=== PATIENT | female | born 1990 | race Hispanic/Latino ===

== ENCOUNTER 2017-10-19 15:44 | Outpatient (CLI) | payer BC ==
--- NOTE | 2017-10-20 16:10 | Ultrasound Report ---
BILATERAL DIGITAL DIAGNOSTIC MAMMOGRAM with CAD 10/20/17 and LEFT BREAST ULTRASOUND 10/19/17: CLINICAL: 27-year-old with a palpable left breast lump. COMPARISON:Right mammogram 05/23/13. No left comparison. FINDINGS: The breasts are heterogeneously dense, which may obscure small masses. A mass with a partially obscured, partially circumscribed and partially irregular margins in the outer left breast correlates with a palpable marker. It measures approximately 2.3 x 2.3 cm.No other mass and no architectural distortion or suspicious calcifications.However, there is suggestion of an abnormally enlarged left axillary lymph node which is partially included on the mammogram. The right breast is negative. Ultrasound of the left breast was performed in the area of the palpable lump and demonstrated a solid irregular hypoechoic shadowing mass at 3 o'clock 3 cm from the nipple. It measures approximately 2.0 x 1.0 x 2.0 cm and correlates with the mammographic mass. The left axilla was not scanned. IMPRESSION: A highly suspicious 2 cm left breast mass at 3 o'clock 3 cm from the nipple and a suspicious left axillary lymph node. BI-RADS CATEGORY: 5 - - Highly Suggestive of Malignancy RECOMMENDATION: Ultrasound guided needle biopsy of the left breast and ultrasound guided needle biopsy of a left axillary lymph node. The patient was informed by the technologist at the time of the exam of the recommendation for ultrasound guided needle biopsy of the left breast mass and ultrasound guided biopsy of a left axillary lymph node. ACR BI-RADS MAMMOGRAPHIC CODES: 0 = Needs additional imaging evaluation; 1 = Negative; 2 = Benign; 3 = Probably benign; 4 = Suspicious; 5 = Malignant; 6 = Known biopsy-proven malignancy COMMENT: 1. Dense breast tissue, i.e., adenosis, fibrocystic changes, etc., may obscure an underlying neoplasm. 2. Approximately 10% of cancers are not detected with mammography. 3. A negative mammography report should not delay biopsy if a clinically suspicious mass is present. COMMENT: Patient follow-up letters are generated by our [employer] application.
== END 2017-10-19 15:45 | disposition home or self-care (01) ==
LOC: US 15:44
PROVIDERS: ATTEND Obstetrics & Gynecology Gynecology
DX: N63.20 Unspecified lump in the left breast, unspecified quadrant (principal)

== ENCOUNTER 2017-10-20 15:12 | Outpatient (CLI) | payer BC ==
--- NOTE | 2017-10-20 16:09 | Mammography Report ---
BILATERAL DIGITAL DIAGNOSTIC MAMMOGRAM with CAD 10/20/17 and LEFT BREAST ULTRASOUND 10/19/17: CLINICAL: 27-year-old with a palpable left breast lump. COMPARISON:Right mammogram 05/23/13. No left comparison. FINDINGS: The breasts are heterogeneously dense, which may obscure small masses. A mass with a partially obscured, partially circumscribed and partially irregular margins in the outer left breast correlates with a palpable marker. It measures approximately 2.3 x 2.3 cm.No other mass and no architectural distortion or suspicious calcifications.However, there is suggestion of an abnormally enlarged left axillary lymph node which is partially included on the mammogram. The right breast is negative. Ultrasound of the left breast was performed in the area of the palpable lump and demonstrated a solid irregular hypoechoic shadowing mass at 3 o'clock 3 cm from the nipple. It measures approximately 2.0 x 1.0 x 2.0 cm and correlates with the mammographic mass. The left axilla was not scanned. IMPRESSION: A highly suspicious 2 cm left breast mass at 3 o'clock 3 cm from the nipple and a suspicious left axillary lymph node. BI-RADS CATEGORY: 5 - - Highly Suggestive of Malignancy RECOMMENDATION: Ultrasound guided needle biopsy of the left breast and ultrasound guided needle biopsy of a left axillary lymph node. The patient was informed by the technologist at the time of the exam of the recommendation for ultrasound guided needle biopsy of the left breast mass and ultrasound guided biopsy of a left axillary lymph node. ACR BI-RADS MAMMOGRAPHIC CODES: 0 = Needs additional imaging evaluation; 1 = Negative; 2 = Benign; 3 = Probably benign; 4 = Suspicious; 5 = Malignant; 6 = Known biopsy-proven malignancy COMMENT: 1. Dense breast tissue, i.e., adenosis, fibrocystic changes, etc., may obscure an underlying neoplasm. 2. Approximately 10% of cancers are not detected with mammography. 3. A negative mammography report should not delay biopsy if a clinically suspicious mass is present. COMMENT: Patient follow-up letters are generated by our [employer] application.
== END 2017-10-20 15:13 | disposition home or self-care (01) ==
LOC: MAMMO 15:12
PROVIDERS: ATTEND Obstetrics & Gynecology Gynecology
DX: N63.20 Unspecified lump in the left breast, unspecified quadrant (principal); N60.22 Fibroadenosis of left breast
CPT/HCPCS: 77066

== ENCOUNTER 2017-10-27 12:41 | Outpatient (CLI) | payer BC ==
--- NOTE | 2017-10-27 14:53 | Mammography Report ---
LEFT DIGITAL DIAGNOSTIC MAMMOGRAM: 10/27/17 12:41:00 CLINICAL: For clip placement immediately status post ultrasound guided needle biopsy of a mass at 3 o'clock and ultrasound guided needle biopsy of an axillary lymph node. COMPARISON:10/20/17 FINDINGS: A biopsy clip is now identified in the upper outer quadrant and correlates with the biopsied mass. IMPRESSION: Concordant clip placement status post ultrasound biopsy. BI-RADS CATEGORY: 5 - - Highly Suggestive of Malignancy Pathology pending.
--- NOTE | 2017-10-27 15:26 | Ultrasound Report ---
ULTRASOUND GUIDED NEEDLE CORE BIOPSY WITH CLIP PLACEMENT LEFT BREAST AND ULTRASOUND GUIDED NEEDLE CORE BIOPSY OF A LEFT AXILLARY LYMPH NODE : 10/27/17 CLINICAL: Left breast mass and suspicious left axillary lymph nodes. COMPARISON :10/20/17 FINDINGS: The procedure was explained to the patient and informed consent was obtained. Ultrasound demonstrated the previously described irregular mass at 3 o'clock and at least 2 suspicious left axillary lymph nodes. The breast was marked with a felt tip marker and a timeout was called. The skin was prepped with Betadine and anesthetized with 1% lidocaine. Ultrasound guided needle core biopsy was performed at 3 o'clock through a small dermatotomy using ultrasound guidance, 2% lidocaine with epinephrine for deep anesthesia and a 14 gauge Achieve biopsy device. Real-time imaging demonstrated satisfactory sampling. Three cores were obtained and placed in formalin. A localizer clip was deployed within the mass. The skin in the axilla was prepped with Betadine and anesthetized with 1% lidocaine. Ultrasound guided needle core biopsy of a lymph node with suspicious cortical thickening was performed through a small dermatotomy using 2% lidocaine with epinephrine for deep anesthesia and an 18-gauge Achieve biopsy device. Two samples were obtained and placed in formalin. A localizer clip was deployed within the lymph node. Hemostasis was obtained at both sites with minimal pressure and sterile dressings were applied. The patient tolerated the procedure well and there were no apparent complications. A two-view mammogram demonstrated concordant clip placement at 3 o'clock. She left the department in good condition with instructions for wound care and followup. IMPRESSION: Uncomplicated ultrasound-guided needle core biopsy of a left breast mass and uncomplicated needle core biopsy of a left axillary lymph node.
== END 2017-10-27 12:42 | disposition home or self-care (01) ==
LOC: SPVWC 12:41
PROVIDERS: ATTEND Obstetrics & Gynecology Gynecology
DX: C50.412 Malignant neoplasm of upper-outer quadrant of left female breast (principal); C77.3 Secondary and unspecified malignant neoplasm of axilla and upper limb lymph nodes
CPT/HCPCS: 38505; 76942; 88305; 88341; 88342; 88361

== ENCOUNTER 2017-11-09 08:08 | Outpatient (CLI) | payer BC ==
--- NOTE | 2017-11-09 13:49 | Magnetic Resonance Report ---
BILATERAL BREAST MRI WITHOUT AND WITH CONTRAST: 11/09/17 08:08:00 CLINICAL: Newly diagnosed left breast cancer. Status post left ultrasound-guided needle core biopsy 10/27/17 with pathologic diagnosis of invasive carcinoma NOS, Cydney grade III. Ultrasound guided needle biopsy of a left axillary lymph node on the same day revealed metastatic carcinoma. COMPARISON:10/20/17 mammogram. TECHNIQUE: Axial 1.0-mm T1 without, axial high resolution 2.0-mm T2 and axial 1.0-mm dynamic Vibrant high-resolution postcontrast T1 fat saturation sequences on a 1.5 Nancy magnet. The examination was performed with an 8 channel dedicated [place] breast coil. Post processing with CAD and subtraction was performed on an [employer] workstation. 18.0 cc of Multihance was injected without incident for the contrast portion of the exam. Consent was obtained prior to the administration of the contrast. FINDINGS: Right: Mild background parenchymal enhancement. No mass or suspicious enhancement. No suspicious right axillary or right internal mammary lymph nodes. Left: Mild background parenchymal enhancement. The known cancer is an irregular enhancing mass at 3:30 o'clock approximately 9 cm from the nipple and 8.2 cm from the chest wall measuring 3.1 x 1.4 x 1.7 cm. It demonstrates heterogeneous enhancement with mixed kinetics, 207% peak enhancement, 64% type I persistent, 29% type II plateau and 7% type III washout waveforms. Multiple additional highly suspicious masses posterior and medial to the known cancer. There at least seven subcentimeter masses which form a line extending from the known cancer to the pectoralis major muscle. At least 2 masses are identified within the left pectoralis major muscle. However, no chest wall invasion. The extent of the known cancer and the additional highly suspicious lesions measures approximately 10 cm in the AP dimension. Several left axillary lymph nodes have abnormal morphology with minimal central fat. The largest is a level II lymph node measuring 3.2 x 2.4 cm. Several matted lymph nodes in the left axilla together measure 4.6 x 1.4 cm. No suspicious left internal mammary lymph nodes. IMPRESSION: 1. Multicentric left breast cancer with a dominant 3.1 cm mass and seven or more additional highly suspicious masses of the left breast. 2. Left pectoralis major muscle involvement but no chest wall invasion. 3. Left axillary hever metastasis with multiple abnormal lymph nodes. 4. Negative right breast. LEFT BI-RADS 6 -- Known Cancer RIGHT BI-RADS 1 -- Negative
== END 2017-11-09 08:09 | disposition home or self-care (01) ==
LOC: SPVIMAG 08:08
PROVIDERS: ATTEND Surgery
DX: C50.912 Malignant neoplasm of unspecified site of left female breast (principal); Z87.891 Personal history of nicotine dependence; Z88.6 Allergy status to analgesic agent
CPT/HCPCS: A9577; C8908; 77059

== ENCOUNTER 2017-11-13 08:32 | Day surgery (SDC) | payer BC ==
[2017-11-13] MEDS ORDERED: NACL BACTERIOSTATIC INFILTRATI ONE (09:08)
[2017-11-13] MEDS ORDERED: ANCEF/STERILE WATER 2 GM/20 ML 2 GM/20 ML SYRINGE IV SCH (09:20)
[2017-11-13] MEDS ORDERED: VERSED IV NR (10:00)
[2017-11-13] MEDS ORDERED: ceFAZolin 2 GM in NACL 0.9% 100 ML IV SCH (10:00)
[2017-11-13] MEDS ORDERED: LACTATED RINGERS 1,000 ML IV SCH (10:00)
[2017-11-13] MEDS ORDERED: MARCAINE 0.25% INFILTRATI ONE ×3 (10:27→11:27)
[2017-11-13] MEDS ORDERED: XYLOCAINE 1% 20 mL ONE (10:27)
[2017-11-13] MEDS ORDERED: NACL 0.9% 100 ML ONE (10:28)
[2017-11-13] MEDS ORDERED: HEPARIN 10,000 UNITS/10 ML ONE (10:28)
[2017-11-13] MEDS ORDERED: XYLOCAINE MPF 2% ONE (10:30)
[2017-11-13] MEDS ORDERED: DIPRIVAN 10 MG/ML IV ONE (10:30)
[2017-11-13] MEDS ORDERED: ZOFRAN ONE (10:31)
[2017-11-13] MEDS ORDERED: DILAUDID ONE (10:31)
[2017-11-13] MEDS ORDERED: DECADRON ONE (10:31)
[2017-11-13] MEDS ORDERED: ZOFRAN IV PRN (11:09)
[2017-11-13] MEDS ORDERED: DEMEROL IV PRN (11:09)
[2017-11-13] MEDS ORDERED: DILAUDID IV PRN (11:09)
--- NOTE | 2017-11-13 11:09 | Anesthesia Consultation ---
Anesthesia Consult and Med Hx Date of service: 11/13/17 - Airway Anesthetic Teeth Evaluation: Good ROM Head & Neck: Adequate Mental/Hyoid Distance: Adequate Mallampati Class: Class I Intubation Access Assessment: Good - Pulmonary Exam CTA: Yes - Cardiac Exam Cardiac Exam: RRR - Pre-Operative Health Status ASA Pre-Surgery Classification: ASA2 Proposed Anesthetic Plan: General - Pulmonary Hx Smoking: Yes (1PPD FOR 8 YEARS) - Central Nervous System Hx Psychiatric Problems: Yes - Other Systems Hx Alcohol Use: Yes (OCCAS) Hx Cancer: Yes
--- NOTE | 2017-11-13 11:09 | Anesthesia Day of Surgery ---
Anesthesia Day of Surgery - Day of Surgery Patient Examined: Yes Patient H&P Reviewed: Yes Patient is NPO: Yes
[2017-11-13] MEDS ORDERED: NACL 0.9% IR ONE (11:21)
[2017-11-13] MEDS ORDERED: HEPARIN 10,000 UNITS/10 ML IV ONE (11:21)
[2017-11-13] MEDS ORDERED: NACL 0.9% IV ONE (11:24)
[2017-11-13] MEDS ORDERED: XYLOCAINE 1% 20 mL INFILTRATI ONE (11:26)
--- NOTE | 2017-11-13 12:12 | Short Stay Summary ---
Short Stay Documentation Date of service: 11/13/17 - History Principal diagnosis: left breast cancer H&P: obtained from office - Allergies and Medications Current Medications: Allergies codeine Adverse Reaction (Verified 11/06/17 12:03) Nausea Home Medications Medication Instructions Recorded Confirmed Last Taken Type clonazePAM [KlonoPIN] 0.5 mg PO QHS 11/06/17 11/13/17 11/10/17 History Active Medications Hydromorphone HCl (Dilaudid) 0.5 mg IV Q10MIN PRN PRN Reason: Pain , Severe (7-10) Cefazolin Sodium (Ancef/Sterile Water 2 Gm/20 Ml) 2 gm in 20 mls @ 15 mls/hr IV PREOP JASBIR Stop: 11/13/17 23:59 Lactated Ringer's (Lactated Ringers) 1,000 mls @ 100 mls/hr IV DIRECT JASBIR Last Admin: 11/13/17 09:45 Dose: 100 mls/hr Meperidine HCl (Demerol) 25 mg IV ONCE PRN PRN Reason: Shivering Midazolam HCl (Versed) 2 mg IV PREOP NR Stop: 11/13/17 23:59 Last Admin: 11/13/17 09:45 Dose: 2 mg Ondansetron HCl (Zofran) 4 mg IV ONCE PRN PRN Reason: Nausea And Vomiting - Brief post op/procedure progress note Date of procedure: 11/13/17 Pre-op diagnosis: left breast cancer Post-op diagnosis: same Procedure: right internal jugular port a cath placement using ultrasound guidance, with fluoroscopy Anesthesia: GETA, local Findings: good placement of port and no PTX on post op CXR Surgeon: LAKHWINDER SRIVASTAVA Estimated blood loss: minimal Pathology: none Condition: stable - Hospital course Hospital course: Patient was observed in the PACU and discharged to home when criteria was met. - Disposition Condition at discharge: Good Disposition: DC-01 TO HOME OR SELFCARE Short Stay Discharge Plan Activity: no restrictions Diet: regular Wound: open to air (May shower tomorrow, pat incisions dry. Do not scrub the incisions. Do not submerge incisions in water.) Additional Instructions: Call surgeon's office if you have fevers greater than 100.4, redness or draining around the incision. Some bruising will be normal. May use ice on the incisions to help with bruising and soreness. Follow-up with Dr. Srivastava in 2 weeks if you do not have a appointment scheduled with Dr. Park in the next 2 weeks. Follow up with: VERA SUERO MD [Primary Care Provider] - 7 Days MARGOTH PARK MD [Staff Physician] - 7 Days Forms: Outpatient Surgery DC Inst. Prescriptions: Ibuprofen 800 mg PO Q8H PRN #20 tablet PRN Reason: Pain, Moderate (4-6)
--- NOTE | 2017-11-13 12:40 | Fluoroscopy Report ---
Single view chest: History: Breast cancer. Findings: Normal cardiomediastinal silhouette. Trachea is midline. Tip of right [id number] in lower superior vena cava. No consolidation pneumothorax or pleural effusion. Impression: Tip of right [id number] in lower superior vena cava. A
[2017-11-13 12:46] VITALS: BP 136/82
[2017-11-13] MEDS ORDERED: TYLENOL PO SCH (12:54)
--- NOTE | 2017-11-18 11:03 | Operative Report ---
Operative Report Operative Report: Date of procedure: 11/13/17 Pre-op diagnosis: left breast cancer Post-op diagnosis: same Procedure: right internal jugular port a cath placement using ultrasound guidance, with fluoroscopy Anesthesia: BJA, local Findings: good placement of port and no PTX on post op CXR Surgeon: LAKHWINDER SRIVASTAVA Estimated blood loss: minimal Pathology: none Condition: stable HPI and indication: 27 yo F with newly diagnosed left breast cancer, who is a candidate for chemotherapy. The patient was referred to the office for evaluation for port placement. After all risks, benefits, and alternatives to surgery were discussed and questions answered, consent was obtained. Procedure in detail: The patient was identified in the preoperative area, taken back to operating room, placed on operating table in supine position. After anesthesia was induced both arms were tucked and upper chest and neck were prepped and draped in usual sterile fashion. A timeout was performed. The was placed in Trendelenburg position. Local anesthetic was infiltrated into the skin at the intended puncture site. The right subclavian vein was visualized on ultrasound, however was difficult to access due to the large clavicle, and therefore this approach was aborted. The right internal jugular vein was identified on ultrasound and was accessed on the first stick. There was return of dark red, nonpulsatile blood. The wire was threaded under fluoroscopy without resistance and positioning confirmed. The needle was then removed. Using a 15 blade, an incision was made in the right upper chest and dissection carried down through the skin and subcutaneous tissue using Bovie electrocautery. Hemostasis was achieved along the way. A pocket for the port was then created bluntly and with electrocautery. The catheter was flushed and tunneled from the pocket to the wire. A breakaway catheter/dilator sheath then inserted over the wire under fluoroscopy, and the wire and dilator removed. The catheter was then inserted through the breakaway catheter which was then removed. The catheter sat flush under the skin. Using continuous fluoroscopy, the catheter was pulled back until the tip was visualized in the right atrium. The catheter was then cut to size and the port attached in the usual fashion. The port was then sutured into place to the pre-pectoral fascia using 2-0 Vicryl interrupted sutures. The wound was irrigated and hemostasis ensured. The port was flushed with heparinized saline and there was return of blood and it flushed easily. The port was then instilled with 3000 units of heparin. The deep dermal layer was then closed with interrupted 3-0 Vicryl stitches. The skin incisions were closed with 4-0 Monocryl subcuticular stitches and skin glue. Intraoperative chest x-ray did show good positioning of the port, without evidence of pneumothorax At the end of the case, all sponge, instrument, sharp counts were correct 2. The patient was awoken from anesthesia and taken to PACU in stable condition
== END 2017-11-13 13:30 | disposition home or self-care (01) ==
LOC: OR 08:32
PROVIDERS: ATTEND Surgery
DX: C50.412 Malignant neoplasm of upper-outer quadrant of left female breast (principal); C77.3 Secondary and unspecified malignant neoplasm of axilla and upper limb lymph nodes; F41.9 Anxiety disorder, unspecified; F17.210 Nicotine dependence, cigarettes, uncomplicated; Z88.5 Allergy status to narcotic agent; Z98.890 Other specified postprocedural states
CPT/HCPCS: 36561; 77001; 81025; C1788; J0690; J1100; J1170; J1644; J2250; J2405; J2704; J7120

== ENCOUNTER 2018-04-28 09:41 | Observation (INO) | payer BC ==
[2018-04-26 09:45] LABS: Basophils % (Auto) 0.5 % (0.0-1.8); Eosinophils # (Auto) 0.2 K/mm3 (0.0-0.4); Eosinophils % (Auto) 3.2 % (0.0-4.3); Hematocrit 38.4 % (30.3-42.9); Hemoglobin 13.6 gm/dl (10.1-14.3); Lymphocytes # (Auto) 1.2 K/mm3 (1.2-5.4); Lymphocytes % (Auto) 22.8 % (13.4-35.0); Mean Corpuscular HGB Conc 35 % (30-34); Mean Corpuscular Volume 91 fl (79-97); Monocytes # (Auto) 0.6 K/mm3 (0.0-0.8); Monocytes % (Auto) 11.6 % (0.0-7.3); Platelet Count 261 K/mm3 (140-440); Red Blood Count 4.21 M/mm3 (3.65-5.03); Red Cell Distribution Width 13.9 % (13.2-15.2)
[2018-04-26 10:00] LABS: BUN/Creatinine Ratio 14; Blood Urea Nitrogen 13 mg/dL (7-17); Calcium 9.2 mg/dL (8.4-10.2); Hemolysis Index 24
--- NOTE | 2018-04-26 11:01 | Anesthesia Consultation ---
Anesthesia Consult and Med Hx Date of service: 04/26/18 - Airway ROM Head & Neck: Adequate Mental/Hyoid Distance: Adequate Mallampati Class: Class II Intubation Access Assessment: Probably Good - Pulmonary Exam CTA: Yes - Cardiac Exam Cardiac Exam: RRR - Pre-Operative Health Status ASA Pre-Surgery Classification: ASA2 Proposed Anesthetic Plan: General Nerve Block: bilateral PEC block - Pulmonary Hx Smoking: Yes (1PPD FOR 8 YEARS) - Central Nervous System Hx Psychiatric Problems: Yes - Other Systems Hx Alcohol Use: Yes (OCCAS) Hx Cancer: Yes
[~2018-04-28 09:41] MED LIST: LACTATED RINGERS 1,000 ML IV SCH; NEURONTIN PO NR; VERSED IV NR
[2018-04-28] MEDS ORDERED: NACL P/F VIAL (10 ML) 10 ML ONE ×2 (10:26→12:21)
[2018-04-28] MEDS ORDERED: ANCEF ONE (10:27)
[2018-04-28] MEDS ORDERED: METHYLENE BLUE ONE (10:27)
[2018-04-28] MEDS ORDERED: BACITRACIN ONE (10:27)
[2018-04-28] MEDS ORDERED: ANCEF/STERILE WATER 2 GM/20 ML IV NR (11:00)
[2018-04-28] MEDS ORDERED: SUBLIMAZE ONE (11:14)
[2018-04-28] MEDS ORDERED: DECADRON ONE ×2 (11:15→11:29)
[2018-04-28] MEDS ORDERED: XYLOCAINE MPF 2% ONE (11:29)
[2018-04-28] MEDS ORDERED: DILAUDID ONE (11:29)
[2018-04-28] MEDS ORDERED: DIPRIVAN 10 MG/ML IV ONE (11:29)
[2018-04-28] MEDS ORDERED: DEMEROL IV PRN (12:35)
[2018-04-28] MEDS ORDERED: DILAUDID IV PRN (12:35)
[2018-04-28] MEDS ORDERED: ZOFRAN IV PRN ×2 (12:35→16:15)
--- NOTE | 2018-04-28 12:35 | Anesthesia Day of Surgery ---
Anesthesia Day of Surgery - Day of Surgery Patient Examined: Yes Patient H&P Reviewed: Yes Patient is NPO: Yes
[2018-04-28] MEDS ORDERED: ANCEF IV ONE ×2 (13:19)
[2018-04-28] MEDS ORDERED: GENTAMICIN IV ONE ×2 (13:20)
[2018-04-28] MEDS ORDERED: NACL 0.9% IR ONE (13:21)
[2018-04-28] MEDS ORDERED: BACITRACIN IR ONE ×2 (13:21)
[2018-04-28] MEDS ORDERED: NACL P/F VIAL (10 ML) INFILTRATI ONE (13:22)
[2018-04-28] MEDS ORDERED: METHYLENE BLUE IRRIGATION ONE (13:23)
[2018-04-28] MEDS ORDERED: WATER FOR IRRIG STERILE IR ONE (13:26)
--- NOTE | 2018-04-28 14:52 | Mammography Report ---
SPECIMEN RADIOGRAPH LEFT BREAST: 04/28/18 09:41:00 CLINICAL: Left mastectomy specimen. Multicentric left breast cancer status post chemotherapy. FINDINGS: A biopsy clip corresponds to the site of the known cancer and is at the margin of the specimen. No distinct mass is identified. IMPRESSION: Left mastectomy with excision of the known cancer.
--- NOTE | 2018-04-28 16:02 | Short Stay Summary ---
Short Stay Documentation Date of service: 04/28/18 - History H&P: obtained from office - Allergies and Medications Current Medications: Allergies codeine Adverse Reaction (Verified 04/16/18 16:42) Nausea Home Medications Medication Instructions Recorded Confirmed Last Taken Type RX: clonazePAM [KlonoPIN] 0.5 mg PO QHS 11/06/17 04/16/18 11/10/17 History RX: Ibuprofen 800 mg PO Q8H PRN #20 tablet 11/13/17 04/16/18 Unknown Rx Active Medications Cefazolin Sodium (Ancef/Sterile Water 2 Gm/20 Ml) 2 gm IV PREOP NR Stop: 04/28/18 23:59 Celecoxib (Celebrex) 200 mg PO PREOP NR Stop: 04/28/18 20:00 Last Admin: 04/28/18 10:45 Dose: 200 mg Documented by: Gabapentin (Neurontin) 300 mg PO PREOP NR Stop: 04/28/18 20:00 Last Admin: 04/28/18 10:45 Dose: 300 mg Documented by: Hydromorphone HCl (Dilaudid) 0.5 mg IV Q10MIN PRN PRN Reason: Pain , Severe (7-10) Stop: 04/28/18 23:59 Lactated Ringer's (Lactated Ringers) 1,000 mls @ 100 mls/hr IV DIRECT JASBIR Last Admin: 04/28/18 10:41 Dose: 100 mls/hr Documented by: Meperidine HCl (Demerol) 25 mg IV ONCE PRN PRN Reason: Shivering Stop: 04/28/18 23:59 Midazolam HCl (Versed) 2 mg IV PREOP NR Stop: 04/28/18 23:59 Ondansetron HCl (Zofran) 4 mg IV ONCE PRN PRN Reason: Nausea And Vomiting - Brief post op/procedure progress note Date of procedure: 04/28/18 Pre-op diagnosis: Left breast cancer of lower outer quadrant Post-op diagnosis: same Procedure: Left mastectomy with SLNB with completion ALND Anesthesia: GETA Findings: Left mastectomy with clip present and 2/3 positive SLNS and proceeded with ALND Surgeon: MARGOTH JONES Estimated blood loss: 50-100ml Pathology: list (L MRM) Specimen disposition: to lab Condition: stable - Disposition Condition at discharge: Good Disposition: DC/TX-02 SHRT-TRM GEN HOSP IP Short Stay Discharge Plan Activity: other (no heavy lifting) Diet: regular Wound: other (keep incision clean and dry) Follow up with: VERA SUERO MD [Primary Care Provider] - 7 Days MARGOTH JONES MD [Staff Physician] - 7 Days
[2018-04-28] MEDS ORDERED: REGLAN PO PRN (16:15)
[2018-04-28] MEDS ORDERED: BENADRYL PO PRN (16:15)
[2018-04-28] MEDS ORDERED: TYLENOL PO PRN (16:15)
[2018-04-28] MEDS ORDERED: PERCOCET 5/325 PO PRN (16:15)
[2018-04-28] MEDS ORDERED: SODIUM CHLORIDE FLUSH SYRINGE 10 ML IV PRN (16:15)
--- NOTE | 2018-04-28 16:15 | Operative Report ---
Operative Report Operative Report: Date of Service: April 28, 2018 Preoperative diagnosis: Left breast cancer of the lower outer quadrant Postoperative diagnosis: Same Procedure: Left total mastectomy with sentinel lymph node biopsy followed by ALND Surgeon: Esther Park M.D. Anesthesia: Gen. Findings: Left breast clip present within left total mastectomy. 3 sentinel lymph nodes identified and two nodes positive for malignancy on frozen section of pathology and proceeded with left axillary lymph node dissection Complications: None Drains: per plastic surgery Estimated blood loss: Minimal Disposition: PACU in good condition Indications for operative procedure: This is a 28-year-old lady with stage II left breast cancer of the lower outer quadrant, [id number] ER/NM positive. She completed neoadjuvant of AC/T. Recommendations were to proceed with left mastectomy given multicentric left breast cancer. She wished to proceed with the above procedure as well as immediate tissue supply chain design manager placement. Procedure in detail: Anesthesia placed left pectoral muscle block prior to going to the operating room. The patient was taken to the operating room and was placed supine. Gen. anesthesia was administered. The left nipple was injected with radioisotope and 1 cc of methylene blue. Left chest and axilla was prepped and draped in the normal sterile operative fashion. Timeout was performed. Typical mastectomy incision marking was made. Attention was taken towards the right breast. A gamma probe was inserted into the axilla to identify the sentinel lymph node location with no uptake noted. A skin incision was made with a 10 blade knife and dissection taken down to the subcutaneous tissues. First began raising of the superior flap to the level of the clavicle superiorly and posteriorly to the pectoralis muscle. Followed by raising of the medial flap to the level of the sternum and posteriorly to the pectoralis muscle. Followed by raising of the lateral flap to the level of the latissimus dorsi muscle and taken down posteriorly. The gamma probe was inserted into the axilla, the axillary fascia was opened and 3 sentinel lymph nodes were identified with the gamma probe that were dissected free and sent to pathology, SLN was previous biopsied axillary lymph node with malginancy. All remaining counts were less than 10% of the highest SLN. Lymph nodes were sent to pathology with findings positive for malignancy noted on frozen section of 2 of 3 SLNS (blue dye was present). Then proceeded with raising of the inferior flap to the level of the inframammary fold taken posterior to the pectoralis muscle. The mastectomy/breast was removed from the pectoralis muscle without incident. The specimen was appropriately marked and sent to radiology with findings of breast clips present and sent to pathology. Attention was then taken towards the left axilla. First began opening of the axillary fascia further. The lattismus dorsi muscle was identified and followed superiorly. Then proceeded with identification of the axillary vein followed by identification of the thoracodorsal bundle and long thoracic nerve. Axillary lymph nodes were then removed from the above boundaries with the aid of the bovie cautery and sweeping-like motion and then sent to pathology. Axillary lymph nodes from level I and II were removed. Both nerves were identified and unharmed. Hemostasis was noted. The chest wall was irrigated and suctioned. Hemostasis was obtained and plastic surgery then proceeded with tissue supply chain design manager placement. She tolerated surgery very well.
--- NOTE | 2018-04-28 16:43 | Operative Report ---
Operative Report Operative Report: PREOPERATIVE DIAGNOSIS: LEFT Breast Cancer POSTOPERATIVE DIAGNOSIS: LEFT Breast Cancer PROCEDURE: 1. LEFT breast reconstruction using tissue neon molder in the pre pectoral position, CPT code 52562-14 2. LEFT breast reconstruction using biological mesh, FlexHD, CPT code 64425-91 3. Application of ARMIDA negative pressure wound vac device to bilateral breasts for postoperative wound healing, CPT code 99766 SURGEON: Rohan Rangel MD STEAMSHIP AGENT: none ANESTHESIA: General OPERATIVE INDICATIONS: This is a 28 year old female with a history of LEFT sided breast cancer, was referred to me byDr. PARK for breast reconstruction. The patient was planning on undergoing LEFTmastectomy and desired reconstruction. A discussion was held with the patient regarding the different surgical options including: immediate vs delayed reconstruction, autologous vs implant based reconstruction as well as the risks and benefits of all options. Plan was to move forward with neon molder reconstruction. OPERATIVE DETAILS: After informed consent was obtained, patient was brought to the operating room and placed on the operating room table. Preoperative antibiotics and general anesthesia were administered. The patient was prepped and draped in the usual sterile fashion and a timeout called to verify the correct patient and procedure. Dr. PARK began her portion of the operation which will be dictated separately. I entered the room and assessed the defect and began my reconstruction. I began by measuring the base width and then choosing the appropriate sized neon molder after examining the defect. I then created a composite implant using the tissue neon molder and biologic mesh with a wrap in order to cover the implant and provide a pocket while in the PRE-PECTORAL space. This was done on the back table. We used MENTOR ARTUORA EXPANDERS, Smooth HP 500cc and wrapped with FlexHD 16 x 20 cm mesh. [employer]I [employer] SERIAL NUMBER: [id number] FLEXHD SERIAL NUMBER: [id number] The neon molder was completely deflated and then inflated with methylene blue tinted saline to a volume of 200cc. The fully wrapped implant was soaked in betadine and triple antibiotic irrigation. I then placed the composite implant on the pectoralis muscle and situated it in the correct position and then anchored it using the suture tabs and spanning sutures. Everything was irrigated again and hemostasis achieved. A 19French and 15 Albanian round channel drain was placed for postop drainage. The skin was then closed with 3-0 monocryl deep dermals and then a 2-0 monocryl barbed suture in a subcuticular pattern. A ARMIDA negative pressure wound vac device was used for coverage of the incisions to prevent postoperative wound healing complications. The patient tolerated the procedure well and was moved to the PACU in stable condition. ESTIMATED BLOOD LOSS: less than 50ml COMPLICATIONS: none SPECIMENS: See Dr. Pakr dictation. TOTAL FILL VOLUME EXPANDERS: 200 cc. FINDINGS: left mastectomy defect
[2018-04-28] MEDS ORDERED: VERSED IV ONE (17:13)
--- NOTE | 2018-04-28 18:14 | Post Anesthesia Evaluation ---
- Post Anesthesia Evaluation Patient Participated: Yes Airway Patent: Yes Stable Respiratory Function: Yes Nausea/Vomiting: No Temp > 96.8F: Yes Pain Manageable: Yes Adequeate Hydration: Yes Anesthesia Complications: No
[2018-04-28] MEDS: MORPHINE IV PRN (20:10)
[2018-04-28] MEDS: LACTATED RINGERS 1,000 ML IV SCH (20:13)
[2018-04-28] MEDS: NORCO 5/325 PO PRN (21:40)
[2018-04-28] MEDS: COLACE PO SCH (21:41)
[2018-04-29] MEDS: MORPHINE IV PRN ×2 (00:20→03:55)
[2018-04-29] MEDS: LACTATED RINGERS 1,000 ML IV SCH (03:54)
--- NOTE | 2018-04-29 08:19 | Progress Note ---
Assessment and Plan This is a 28 year old lady POD# 1 L MRM. No acute events overnight. 1. Left chest with PICCO in place, MATILDE drains to bulb suction. 2. Pain in moderate control, will add toradol. 3. OOB to hallway. 4. MATILDE drain education. 5. D/C planning for today. Subjective Date of service: 04/29/18 Principal diagnosis: Left breast cancer Interval history: POD#1 Left MRM Objective - Constitutional Vitals: Vital Signs - 12hr 04/28/18 04/29/18 04/29/18 20:55 00:11 04:02 Temperature 97.8 F 97.4 F L 97.5 F L Pulse Rate 82 68 58 L Respiratory 18 20 20 Rate Blood Pressure 125/77 109/62 117/77 O2 Sat by Pulse 97 97 100 Oximetry General appearance: Present: no acute distress - EENT Eyes: PERRL, EOM intact ENT: hearing intact, clear oral mucosa, dentition normal Ears: bilateral: normal - Respiratory Respiratory effort: normal Respiratory: bilateral: CTA - Breasts Breasts: other (left chest PICCO in place; MATILDE drains to bulb suction; no hematoma) - Cardiovascular Rhythm: regular Extremities: no ischemia, pulses intact, pulses symmetrical, No edema, normal temperature, normal color, Full ROM - Gastrointestinal General gastrointestinal: Present: soft, non-tender, non-distended Rectal Exam: deferred - Genitourinary Female genitourinary: deferred - Integumentary Integumentary: clear, warm, dry - Musculoskeletal Musculoskeletal: strength equal bilaterally - Neurologic Neurologic: CNII-XII intact, moves all extremities, gait normal - Psychiatric Psychiatric: appropriate mood/affect, intact judgment & insight, memory intact, cooperative - Labs CBC & Chem 7: 04/26/18 09:25 04/26/18 09:25 Medications & Allergies - Medications Allergies/Adverse Reactions: Allergies codeine Adverse Reaction (Verified 04/16/18 16:42) Nausea Home Medications: Home Medications Medication Instructions Recorded Confirmed Last Taken Type clonazePAM [KlonoPIN] 0.5 mg PO QHS 11/06/17 04/16/18 11/10/17 History Ibuprofen 800 mg PO Q8H PRN #20 tablet 11/13/17 04/16/18 Unknown Rx HYDROcodone/APAP 5-325 [Homeland 1 each PO Q6HR PRN #30 tablet 04/29/18 Unknown Rx 5/325] Ketorolac [Toradol] 10 mg PO Q6H PRN #8 tablet 04/29/18 Unknown Rx Active Medications: Generic Name Dose Route Start Last Admin Trade Name Freq PRN Reason Stop Dose Admin Acetaminophen 650 mg 04/28/18 16:15 Tylenol PO Q6H PRN Pain MILD(1-3)/Fever >100.5/GREEN Acetaminophen/Hydrocodone Bitart 2 each 04/28/18 20:50 04/28/18 21:40 Homeland 5/325 PO 2 each Q6H PRN Administration Pain, Moderate (4-6) Clonazepam 0.5 mg 04/28/18 18:51 04/28/18 20:18 Klonopin PO 0.5 mg QHS PRN Administration Anxiety Diphenhydramine HCl 25 mg 04/28/18 16:15 Benadryl PO Q8H PRN Itching Docusate Sodium 100 mg 04/28/18 22:00 04/28/18 21:41 Colace PO 100 mg BID JASBIR Administration Lactated Ringer's 1,000 mls @ 100 mls/hr 04/28/18 06:00 04/28/18 10:41 Lactated Ringers IV 100 mls/hr DIRECT JASBIR Administration Lactated Ringer's 1,000 mls @ 125 mls/hr 04/28/18 17:00 04/29/18 03:54 Lactated Ringers IV 125 mls/hr DIRECT JASBIR Administration Metoclopramide HCl 10 mg 04/28/18 16:15 Reglan PO Q6H PRN Nausea And Vomiting Morphine Sulfate 2 mg 04/28/18 16:17 04/29/18 03:55 Morphine IV 2 mg Q4H PRN Administration Pain, Moderate (4-6) Ondansetron HCl 4 mg 04/28/18 12:35 Zofran IV ONCE PRN Nausea And Vomiting Ondansetron HCl 4 mg 04/28/18 16:15 Zofran IV Q8H PRN N/V unrelieved by Reglan Sodium Chloride 10 ml 04/28/18 16:15 Sodium Chloride Flush Syringe 10 Ml IV PRN PRN LINE FLUSH
[2018-04-29] MEDS: NORCO 5/325 PO PRN ×2 (08:20→13:38)
[2018-04-29] MEDS: COLACE PO SCH (08:21)
[2018-04-29 17:26] VITALS: BP 135/76
== END 2018-04-30 16:20 | disposition home or self-care (01) ==
LOC: OR 09:41 → OB 16:15
PROVIDERS: ADMIT Surgery; ATTEND Surgery
DX: C50.312 Malignant neoplasm of lower-inner quadrant of left female breast (principal); C50.512 Malignant neoplasm of lower-outer quadrant of left female breast; Z79.899 Other long term (current) drug therapy; Z80.3 Family history of malignant neoplasm of breast
CPT/HCPCS: 15777; 19303; 19357; 36415; 38525; 38792; 64450; 76098; 78800; 80048; 84703; 85025; 88307; 88331; 96374; 96375; 96376; A9541; C1789; G0378; J0690; J1100; J1170; J1580; J2250; J2270; J2704; J3010; J7120; Q4128; Q9968; 88309; 88333

== ENCOUNTER 2019-09-13 10:00 | Outpatient (CLI) | payer BC ==
--- NOTE | 2019-09-13 11:53 | Mammography Report ---
RIGHT DIGITAL DIAGNOSTIC MAMMOGRAM WITH CAD 09/13/2019 RIGHT COMPLETE BREAST ULTRASOUND INDICATION: Right breast lump, hx left breast cancer TECHNIQUE: Digital right mammographic imaging was performed. Complete ultrasound of all four (4) maximo drants was performed. This examination was interpreted with the benefit of Computer-Aided Detection ( CAD) analysis. COMPARISON: Prior mammogram, 12/07/2018 FINDINGS: Breast Density: The breasts are heterogeneously dense, which may obscure small masses. MAMMOGRAPHIC FINDINGS: There is no evidence of dominant mass, suspicious calcifications or architectu ral distortion in the right breast. It appears that the patient has had interval reduction mammoplast y of the right breast. There is no mammographic abnormality corresponding to the area of the palpable lump. ULTRASOUND FINDINGS: Complete sonographic evaluation of all 4 quadrants and retroareolar region was p erformed. Sonographic evaluation of the right breast shows postoperative changes consistent with hi story of interval right breast surgery. There is no suspicious finding. In the breast, at 9:30, 2 cm from the nipple, there is vague hypoechoic area that should represent postoperative change. Also in p alpable area at 7:30, 11 cm from the nipple, there is a small focal fluid collection measuring approx imately 4.5 x 3.6 x 1.3 cm consistent with small seroma. Additionally, there is a 10 mm cyst at 12:00 , 2 cm from the nipple. IMPRESSION: No evidence of malignancy. Palpable areas within the right breast appear to be postoperat janett in nature. Follow up recommendation: Routine yearly BI-RADS Category 2: Benign. A "normal" or negative report should not discourage follow up or biopsy of a clinically significant f inding. A written summary of these findings will be mailed to the patient. The patient will be entered into a mammography reporting system which will generate a reminder letter for the patient's next appointmen t at the appropriate interval. According to the [employer], yearly mammograms are recommended starting at age 40 and continuing as long as a woman is in good health. Breast MRI is recommended for women with an morales roximately 20-25% or greater lifetime risk of breast cancer, including women with a strong family his tory of breast or ovarian cancer and women who have been treated for Hodgkin's disease. Signer Name: Candy Willis MD Signed: 09/13/2019 11:48 AM Workstation Name: [email or web address]
== END 2019-09-13 10:01 | disposition home or self-care (01) ==
LOC: SPVWC 10:00
PROVIDERS: ATTEND Surgery
DX: R92.8 Other abnormal and inconclusive findings on diagnostic imaging of breast (principal)

== ENCOUNTER 2019-12-20 08:07 | Outpatient (CLI) | payer BC ==
--- NOTE | 2019-12-20 09:01 | Mammography Report ---
DIGITAL SCREENING MAMMOGRAM WITH CAD, 12/20/2019 INDICATION: Routine screening mammography. SCREENING MAMMOGRAM TECHNIQUE: Digital right 2D mammography was obtained in the craniocaudal and mediolateral oblique pr ojections. This examination was interpreted with the benefit of Computer-Aided Detection analysis. COMPARISON: 12/07/2018 FINDINGS: Breast Density: The breasts are heterogeneously dense, which may obscure small masses. There is no evidence of dominant mass, suspicious calcifications or architectural distortion in the r ight breast. Interval reduction changes are noted. IMPRESSION: No evidence of malignancy Follow up recommendation: Routine yearly BI-RADS Category 2: Benign. A "normal" or negative report should not discourage follow up or biopsy of a clinically significant f inding. A written summary of these findings will be mailed to the patient. The patient will be entered into a mammography reporting system which will generate a reminder letter for the patient's next appointmen t at the appropriate interval. The [employer] recommends yearly mammograms starting at age 40 and continuing as l rick as a woman is in good health. Breast MRI is recommended for women with an approximate 20-25% or greater lifetime risk of breast cancer, including women with a strong family history of breast or ova evert cancer or who have been treated for Hodgkin's disease. Signer Name: Johnny Langford MD Signed: 12/20/2019 8:56 AM Workstation Name: [id number]
== END 2019-12-20 08:08 | disposition home or self-care (01) ==
LOC: SPVWC 08:07
PROVIDERS: ATTEND Surgery
DX: C50.412 Malignant neoplasm of upper-outer quadrant of left female breast (principal)
CPT/HCPCS: 77067

== ENCOUNTER 2020-01-18 08:20 | Outpatient (CLI) | payer BC ==
--- NOTE | 2020-01-18 11:01 | Magnetic Resonance Report ---
Bilateral breast MR without and with contrast. History: History of left breast cancer, status post left breast mastectomy with implant reconstructio n, history of reduction surgery in the right breast. Screening breast MRI of the right breast. Comparison: 12/20/2019, 12/07/2018. Technique: Multiplanar multisequence MR images of the breast were obtained before and after the intra venous administration of intravenous contrast. Post processing analysis and review was performed on a separate computer workstation. Findings: The right breast demonstrates heterogenously dense breast composition. There is mild background paren chymal enhancement within the right breast. RIGHT BREAST: Postsurgical changes are noted following reported reduction surgery with mild distortio n in the right lower outer posterior breast. Within this region is vague low level enhancement with c entral fat component identified. This demonstrates enhancement kinetics which are typically associate d with benign etiologies and the appearance is most consistent with an area of fat necrosis/scarring. There is no discrete enhancing mass. LEFT BREAST: Patient is status post left breast mastectomy with implant reconstruction. The implant a ppears intact. There is skin thickening along the lateral aspect of the left breast which is typical of treatment related changes. No abnormal axillary or internal mammary lymph nodes. Impression: No evidence of breast malignancy. Suspected areas of fat necrosis/postsurgical change in the right lower outer posterior breast, likely corresponding to post reduction surgery. Patient is status post left breast mastectomy with intact implant reconstruction. BIRADS 2: Benign A normal MRI does not exclude the presence of some forms of breast malignancy as literature reports s uggest that some forms of ductal carcinoma in situ or lobular carcinoma, particularly, may not be det ected on MRI. The sensitivity and specificity of MRI for cancers under 5 mm may be reduced. MRI does not replace the recommendation for annual conventional mammographic evaluation and should be used as an adjunct to mammography and physical examination as necessary. Signer Name: Wilfrido Stern MD Signed: 01/18/2020 10:56 AM Workstation Name: [id number]
== END 2020-01-18 08:21 | disposition home or self-care (01) ==
LOC: SPVIMAG 08:20
PROVIDERS: ATTEND Surgery
DX: C50.511 Malignant neoplasm of lower-outer quadrant of right female breast (principal); R23.4 Changes in skin texture; Z85.3 Personal history of malignant neoplasm of breast
CPT/HCPCS: A9577; C8908; 77049

== ENCOUNTER 2020-07-04 08:29 | Outpatient (CLI) | payer BC ==
--- NOTE | 2020-07-04 10:15 | Mammography Report ---
RIGHT DIGITAL DIAGNOSTIC MAMMOGRAM WITH CAD CONVENTIONAL, 07/04/2020 BILATERAL LIMITED BREAST ULTRASOUND CLINICAL INFORMATION / INDICATION: Patient presents for evaluation of an area of palpable concern in the right breast and an area of focal pain in the left breast. Patient has history of left breast ca ncer status post left mastectomy, and right breast reduction. TECHNIQUE: Digital right mammographic imaging was performed. Spot compression views were obtained. Li mited ultrasound was performed. This examination was interpreted with the benefit of Computer-Aided D etection (CAD) analysis. COMPARISON: Prior breast MRI 01/18/2020, right mammogram 12/20/2019, and right breast ultrasound 09/13/19 20 FINDINGS: Breast Density: The breasts are heterogeneously dense, which may obscure small masses. MAMMOGRAPHIC FINDINGS: Redemonstration of postsurgical change related to right breast reduction. [place] esponding with the site of palpable concern in the posterior lower outer quadrant of the right breast , there is focal asymmetric density with internal fat density, most compatible with benign fat necros is. Benign fat necrosis was seen in this area on recent breast MRI. Targeted ultrasound performed for further evaluation as well as for evaluation of an area of focal pain in the left breast. ULTRASOUND FINDINGS: Targeted ultrasound evaluation was performed of the area of interest. Right breast: Targeted ultrasound of the area of palpable concern in the right breast 8:00 position l ocated 7 cm from the nipple reveals a heterogeneous masslike area measuring up to 3.6 x 1.8 x 2.8 cm. This is most compatible with benign fat necrosis, as seen on mammogram and recent MRI. No suspicious sonographic abnormality identified. Left breast: Targeted ultrasound of the area of focal pain in the 2 through 5:00 position of the left breast is unremarkable without evidence of suspicious cystic or solid lesion. IMPRESSION: 1. Findings most compatible with benign fat necrosis account for the area of palpable concern in the right breast. 2. No sonographic abnormality to account for the area of focal pain in the left breast, therefore cli nical correlation is recommended. Follow up recommendation: Back to schedule. BI-RADS Category 2: Benign. A "normal" or negative report should not discourage follow up or biopsy of a clinically significant f inding. A written summary of these findings will be mailed to the patient. The patient will be entered into a mammography reporting system which will generate a reminder letter for the patient's next appointmen t at the appropriate interval. According to the [employer], yearly mammograms are recommended starting at age 40 and continuing as long as a woman is in good health. Breast MRI is recommended for women with an morales roximately 20-25% or greater lifetime risk of breast cancer, including women with a strong family his tory of breast or ovarian cancer and women who have been treated for Hodgkin's disease. Signer Name: Dyan Obrien MD Signed: 07/04/2020 10:10 AM Workstation Name: [id number]
== END 2020-07-04 08:30 | disposition home or self-care (01) ==
LOC: SPVWC 08:29
PROVIDERS: ATTEND Surgery
DX: N63.10 Unspecified lump in the right breast, unspecified quadrant (principal); R92.8 Other abnormal and inconclusive findings on diagnostic imaging of breast

== ENCOUNTER 2020-12-20 08:51 | Outpatient (CLI) | payer BC ==
--- NOTE | 2020-12-20 14:50 | Mammography Report ---
DIGITAL SCREENING MAMMOGRAM WITH TOMOSYNTHESIS WITH CAD, 12/20/2020 CLINICAL INFORMATION / INDICATION: Routine Screening Mammography. TECHNIQUE: Digital right 2D and 3D mammography with tomosynthesis was obtained in the craniocaudal a nd mediolateral oblique projections. Computer-Aided Detection (CAD) analysis was used for interpreta tion of this study. COMPARISON: 12/20/2019, 10/20/2017 FINDINGS: Breast Density: The breast is heterogeneously dense, which may obscure small masses. A group of calcifications are partially visualized posteriorly along the lower outer right breast on the MLO view with increase in number and density compared to the prior studies. No other significant abnormality is noted. IMPRESSION: Indeterminate right breast calcifications as above. A diagnostic right mammogram with mag nification views is recommended for further evaluation. Follow up recommendation: Special View: Mag BI-RADS Category 0: Incomplete. Needs additional imaging evaluation and/or prior mammograms for manda rison. A "normal" or negative report should not discourage follow up or biopsy of a clinically significant f inding. A written summary of these findings will be mailed to the patient. The patient will be entered into a mammography reporting system which will generate a reminder letter for the patient's next appointmen t at the appropriate interval. The [employer] recommends yearly mammograms starting at age 40 and continuing as l rick as a woman is in good health. Breast MRI is recommended for women with an approximate 20-25% or greater lifetime risk of breast cancer, including women with a strong family history of breast or ova evert cancer or who have been treated for Hodgkin's disease. Signer Name: Bautista Chen MD Signed: 12/20/2020 2:46 PM Workstation Name: [id number]
== END 2020-12-20 08:52 | disposition home or self-care (01) ==
LOC: SPVWC 08:51
PROVIDERS: ATTEND Surgery
DX: Z12.31 Encounter for screening mammogram for malignant neoplasm of breast (principal); N64.89 Other specified disorders of breast
CPT/HCPCS: 77063